=== PATIENT | female | born 1990 | race Two or more races ===

== ENCOUNTER → 2024-12-21 | Outpatient (CLI) | payer MEDICAID, SELFPAY ==
[2024-12-21 14:27] LABS: HCG Qualitative,Urine Negative
--- NOTE | 2024-12-21 15:00 | XR_ITS ---
Examination: CT chest, without intravenous contrast. Sagittal and coronal 2-D reconstructions. Exam date and time: December 21, 2024 1457 hours Comparison September 05, 2022 INDICATIONS: Shortness of breath one month, diagnosis asthma CTDI:vol (mGy) 13.8 DLP: (mGycm) 501 Technique: Multiple 3.0 mm axial sections of the chest to been obtained. Bone and lung density settings are obtained. Sagittal and coronal 2-D reconstructions have been obtained. Low dose protocols were performed. One or more of the following dose reduction techniques were used; automated exposure control, adjustment of the mA and/or KV according to patient size, use of iterative reconstruction technique. Findings: No thoracic aortic aneurysmal dilatation. Pulmonary artery segment are not enlarged No paratracheal tracheobronchial or bronchopulmonary adenopathy No pneumonia, pulmonary edema, pleural disease or pulmonary mass lesion No hyperexpansion No visualized liver or splenic lesion Contracted gallbladder Moderate left renal parenchymal scar formation, no hydronephrosis Mild osteopenia IMPRESSION: No mediastinal lymphadenopathy No pneumonia, pulmonary edema, pleural disease or pulmonary mass lesions No hyperexpansion Significant scarring left kidney
== END | disposition home or self-care (01) ==
LOC: CCTX 13:47
PROVIDERS: PCP Internal Medicine; Referring Provider Internal Medicine; Visit Provider Internal Medicine
DX: J45.30 Mild persistent asthma, uncomplicated (principal); R06.02 Shortness of breath; N28.89 Other specified disorders of kidney and ureter; Z32.00 Encounter for pregnancy test, result unknown
CPT/HCPCS: 71250; 81025

== ENCOUNTER → 2025-02-17 | Outpatient (CLI) | payer MEDICAID, SELFPAY ==
--- NOTE | 2025-02-17 12:26 | XR_ITS ---
Examination: Abdomen 2 views Technique one AP upright AP supine abdomen 2 views Exam date and time: February 17, 2025 1311 hours INDICATIONS: Stomach pain beginning 3 weeks ago. FINDINGS: Moderate to large amount stool in the right colon No obstruction No free air No abnormal calcific densities IMPRESSION: Moderate to large amounts of stool in the right colon
== END | disposition home or self-care (01) ==
PROVIDERS: PCP Nurse Practitioner Family; Referring Provider Nurse Practitioner Family; Visit Provider Nurse Practitioner Family
DX: K59.00 Constipation, unspecified (principal)
CPT/HCPCS: 74019

== ENCOUNTER → 2025-08-03 | Outpatient (CLI) | payer MEDICAID, SELFPAY ==
--- NOTE | 2025-08-03 10:29 | XR_ITS ---
Examination: Bilateral AP knees single view TECHNIQUE: Standing bilateral AP knees single view Date and time: August 03, 2025 1038 hours INDICATIONS: Bilateral knee pain joint popping with walking 3 months. FINDINGS: Mild osteopenia. No fracture or dislocation. Minimal narrowing medial joint space left knee IMPRESSION: Minimal narrowing medial joint space left knee
== END | disposition home or self-care (01) ==
LOC: CDIM 10:02
PROVIDERS: PCP Nurse Practitioner; Referring Provider Nurse Practitioner Family; Visit Provider Nurse Practitioner Family
DX: M25.862 Other specified joint disorders, left knee (principal); M25.861 Other specified joint disorders, right knee
CPT/HCPCS: 73565

== ENCOUNTER → 2025-11-15 | Outpatient (CLI) | payer MEDICAID, SELFPAY ==
--- NOTE | 2025-11-15 14:18 | XR_ITS ---
EXAMINATION: PA lateral chest 2 views TECHNIQUE: Upright PA lateral chest 2 views Date and time: November 15, 2025, 1446 hours INDICATIONS: Coughing months. FINDINGS: Mild pneumonia left base obscuring detail left hemidiaphragm Normal heart size Right lung clear IMPRESSION: Mild pneumonia left base
== END | disposition home or self-care (01) ==
LOC: CDIM 13:37
PROVIDERS: PCP Nurse Practitioner; Referring Provider Internal Medicine; Visit Provider Internal Medicine
DX: J18.9 Pneumonia, unspecified organism (principal); R05.3 Chronic cough; J45.30 Mild persistent asthma, uncomplicated; J44.1 Chronic obstructive pulmonary disease with (acute) exacerbation; U09.9 Post COVID-19 condition, unspecified
CPT/HCPCS: 71046